=== PATIENT | male | born 1940 | race Caucasian/White ===

== ENCOUNTER 2019-05-28 08:29 | Emergency (ER) | payer OTHER ==
[~2019-05-28] VITALS: Ht 177.8 cm; Wt 90.7 kg
[2019-05-28] MEDS ORDERED: HYDCHL25 PO (08:47)
[2019-05-28] MEDS ORDERED: FLAX PO (08:47)
[2019-05-28] MEDS ORDERED: METF500 PO (08:47)
[2019-05-28] MEDS ORDERED: MAGN84 PO (08:48)
[2019-05-28] MEDS ORDERED: TRAZ50 PO (08:49)
[2019-05-28] MEDS ORDERED: ATOR10 PO (08:49)
[2019-05-28] MEDS ORDERED: Ranitidine HCl150 M1 PO (08:50)
[2019-05-28] MEDS ORDERED: AMLO10 PO (08:50)
[2019-05-28] MEDS ORDERED: VALERIAN ROOT PO (08:50)
== END 2019-05-28 09:43 | disposition home or self-care (01) ==
LOC: ER 08:29
DX: R04.0 Epistaxis (principal)
CPT/HCPCS: 99283

== ENCOUNTER 2020-06-04 13:25 | Emergency (ER) | payer OTHER ==
[~2020-06-04] VITALS: Ht 172.7 cm; Wt 80.7 kg
[~2020-06-04 13:25] MED LIST: AMLO10 PO; ATOR10 PO; FLAX PO; HYDCHL25 PO; MAGN84 PO; METF500 PO; Ranitidine HCl150 M1 PO; TRAZ50 PO; VALERIAN ROOT PO
[2020-06-04 13:58] LABS: BASOPHILS ABSOLUTE AUTO 0.07 K/mm3 (0.00-0.23); BASOPHILS PERCENT AUTO 1 % (0-2); EOSINOPHILS ABSOLUTE AUTO 0.17 K/mm3 (0.00-0.68); EOSINOPHILS PERCENT AUTO 2 % (0-6); Hematocrit 42.5 % (37.0-53.0); IMMATURE GRAN ABSOLUTE AUTO 0.04 K/mm3 (0.00-0.10); IMMATURE GRAN PERCENT AUTO 1 % (0-1); LYMPHOCYTES ABSOLUTE AUTO 1.85 K/mm3 (0.84-5.20); LYMPHOCYTES PERCENT AUTO 21 % (21-46); MONOCYTES ABSOLUTE AUTO 0.93 K/mm3 (0.16-1.47); MONOCYTES PERCENT AUTO 11 % (4-13); Mean Corpuscular HGB Conc 32.9 g/dL (31.5-36.5); Mean Corpuscular Volume 91 fL (80-100); Mean Platelet Volume 9.7 fL (9.1-12.4); NEUTROPHILS ABSOLUTE AUTO 5.79 K/mm3 (1.96-9.15); NEUTROPHILS PERCENT AUTO 65 % (41-73); Platelet Count 271 K/mm3 (150-400); RDW Coefficient Variation 13.3 % (11.7-14.2); RDW Standard Deviation 44.7 fL (35.1-46.3); Red Blood Cell Count 4.67 M/mm3 (4.30-5.90); White Blood Cell Count 8.85 K/mm3 (4.00-11.30)
[2020-06-04] MEDS ORDERED: MAGNESIUM OXID500 MG PO (14:07)
[2020-06-04] MEDS ORDERED: POTCHL20ER PO (14:08)
[2020-06-04] MEDS ORDERED: PHENY100ER PO (14:08)
[2020-06-04] MEDS ORDERED: PIOG30 PO (14:08)
[2020-06-04 14:25] LABS: Alanine Aminotransfer (ALT/SGP 32 U/L (12-78); Albumin, Blood 3.8 g/dL (3.4-5.0); Albumin/Globulin Ratio 0.9 (0.8-1.8); Alk Phos 63 U/L (50-136); Anion Gap 11 mmol/L (6-16); Aspartate Aminotrans (AST/SGOT 16 U/L (12-37); Bilirubin, Total 0.4 mg/dL (0.1-1.0); Blood Urea Nitrogen 17 mg/dL (8-24); Bun/Creatinine Ratio 19.3 (12.0-20.0); CO2, Blood 24 mmol/L (21-32); Calcium, Blood 8.9 mg/dL (8.5-10.1); Chloride, Blood 106 mmol/L (98-108); Creatinine, Blood 0.88 mg/dL (0.60-1.20); Globulin, Blood 4.2 g/dL (2.2-4.0); Glomerular Filtration Rate >60 (60-); Glucose, Blood 120 mg/dL (70-99); Potassium, Blood 3.5 mmol/L (3.5-5.5); Sodium, Blood 141 mmol/L (136-145)
[2020-06-04] MEDS ORDERED: LEVE500 PO (16:17)
== END 2020-06-04 17:15 | disposition home or self-care (01) ==
LOC: ER 13:25
PROVIDERS: Physician Assistant
DX: I62.00 Nontraumatic subdural hemorrhage, unspecified (principal); R29.810 Facial weakness; R47.81 Slurred speech; E11.9 Type 2 diabetes mellitus without complications; I10 Essential (primary) hypertension; Z79.84 Long term (current) use of oral hypoglycemic drugs; Z79.899 Other long term (current) drug therapy
CPT/HCPCS: 36415; 70450; 80053; 80185; 80186; 82947; 83735; 85025; 93005; 93010; 99285-25

== ENCOUNTER 2022-10-24 15:09 | Observation (INO) | payer OTHER ==
[~2022-10-24] VITALS: Ht 167.6 cm; Wt 77.8 kg
[~2022-10-24 15:09] MED LIST changes: +LEVE500 PO; +MAGNESIUM OXID500 MG PO; +PHENY100ER PO; +PIOG30 PO; +POTCHL20ER PO
[2022-10-24 15:50] LABS: BASOPHILS ABSOLUTE AUTO 0.07 K/mm3 (0.00-0.23); BASOPHILS PERCENT AUTO 1 % (0-2); EOSINOPHILS ABSOLUTE AUTO 0.12 K/mm3 (0.00-0.68); EOSINOPHILS PERCENT AUTO 2 % (0-6); Hematocrit 39.1 % (37.0-53.0); Hemoglobin 13.1 g/dL (13.5-17.5); IMMATURE GRAN ABSOLUTE AUTO 0.02 K/mm3 (0.00-0.10); IMMATURE GRAN PERCENT AUTO 0 % (0-1); LYMPHOCYTES ABSOLUTE AUTO 1.82 K/mm3 (0.84-5.20); LYMPHOCYTES PERCENT AUTO 24 % (21-46); MONOCYTES ABSOLUTE AUTO 0.79 K/mm3 (0.16-1.47); MONOCYTES PERCENT AUTO 11 % (4-13); Mean Corpuscular HGB 30.1 pg (26.0-34.0); Mean Corpuscular HGB Conc 33.5 g/dL (31.5-36.5); Mean Corpuscular Volume 90 fL (80-100); NEUTROPHILS ABSOLUTE AUTO 4.64 K/mm3 (1.96-9.15); NEUTROPHILS PERCENT AUTO 62 % (41-73); Platelet Count 197 K/mm3 (150-400); RDW Coefficient Variation 13.2 % (11.7-14.2); RDW Standard Deviation 43.8 fL (35.1-46.3); Red Blood Cell Count 4.35 M/mm3 (4.30-5.90); White Blood Cell Count 7.46 K/mm3 (4.00-11.30)
[2022-10-24 16:06] LABS: Albumin, Blood 3.9 g/dL (3.4-5.0); Albumin/Globulin Ratio 1.1 (0.8-1.8); Bilirubin, Total 0.5 mg/dL (0.1-1.0); Bun/Creatinine Ratio 16.8 (12.0-20.0); Calcium, Blood 8.5 mg/dL (8.5-10.1); Creatinine, Blood 1.13 mg/dL (0.60-1.20); Globulin, Blood 3.4 g/dL (2.2-4.0); Potassium, Blood 3.6 mmol/L (3.5-5.5); Total Protein, Blood 7.3 g/dL (6.4-8.2)
[2022-10-24 17:00] LABS: Source, Urine Clean Catch
[2022-10-24 17:02] LABS: Appearance, Urine Clear (Clear); Bilirubin, Urine Neg (Neg); Blood, Urine Neg (Neg); Color, Urine Yellow (P-Yellow); Glucose Qualitative, Urine Neg (Neg); Ketones, Urine Neg (Neg); Leukocyte Esterase, Urine Neg (Neg); Nitrite, Urine Neg (Neg); Protein, Urine 3+ (Neg); Urobilinogen, Urine NORM (Normal)
[2022-10-24 17:08] LABS: Bacteria Few /hpf; Red Blood Cells, Urine 0-2 /hpf (0-2); Squamous Epithelial Cells Rare /hpf (Few); Transitional Epithelial Cells Rare /hpf (0-Rare); White Blood Cells, Urine 0-2 /hpf (0-5)
[2022-10-24 17:13] LABS: U Amphetamine Screen Not Detected; U Barbituate Screen Not Detected; U Benzodiazapine Screen Not Detected; U Buprenorphine Screen Not Detected; U Cannabinoids Screen Not Detected; U Cocaine Screen Not Detected; U Methadone Screen Not Detected; U Methamphetamine Screen Not Detected; U Opiates Screen Not Detected; U Oxycodone Screen Not Detected; U Phencyclidine Screen Not Detected; U Propoxyphene Screen Not Detected
[2022-10-24 21:03] VITALS: BP 178/85
[2022-10-25] MEDS ORDERED: AMARYL PO (02:12)
[2022-10-25 02:48] VITALS: BP 166/77
--- NOTE | 2022-10-25 04:48 | NUR ---
LENA SLEPT WELL AFTER RECEIVING HIS NIGHTLY TRAZODONE. SYMPTOMS SEEMED TO WAX AND WANE EARLY AFTER ARRIVAL TO ROOM 340. MOSTLY GENERALIZED WEAKNESS AND INTERMITTANTLY SLURRED SPEECH AND EXPRESSIVE APHASIA. TOWARDS MORNING, THE APHASIA WAS GONE, PATIENT WAS AMBULATING STEADILY WITH HIS CANE IN THE ROOM WITH JUST A STAND BY ASSSIST TO BATHROOM. NO COMPLAINT OF PAIN OR DISCOMFORT. THIS MORNING HE WAS ABLE TO RATTLE OFF HIS MEDLIST WITH EXCEPTION OF CURRENT METFORMIN DOSAGES, WELL TWO SEIZURE MEDICATIONS WHICH HE THOUGHT HE HAD QUIT SHORTLY AFTER HIS CLOSED HEAD INJURY IN 2019. 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 FROM MARGE DESCRIPTION, SHE CAN BECOME QUITE VERBALLY ABUSIVE WITH HIM THE NIGHT BEFORE HE HAD THE STROKE LIKE SYMPTOMS. HE COULD AT THE VERY LEAST USE SOME CAREGIVER SUPPORT AT HOME
[2022-10-25 07:41] VITALS: BP 147/82
[2022-10-25] MEDS ORDERED: FAMO20 PO (14:52)
[2022-10-25] MEDS ORDERED: ASPI81CH PO (14:52)
[2022-10-25] MEDS ORDERED: CLOP75 PO (14:52)
[2022-10-25] MEDS ORDERED: ATOR40TA PO (14:52)
[2022-10-25] MEDS ORDERED: LEVE500 PO (14:53)
[2022-10-25] MEDS ORDERED: PHENY100ER PO (14:53)
--- NOTE | 2022-10-25 14:53 | NUR ---
NO PREFERENCE FOR HOME HEALTH, ORDERS SENT TO [facility]
--- NOTE | 2022-10-25 17:53 | NUR ---
PT AWAKE AT START OF SHIFT, RESTING QUIETLY WATCHING TV. DENIED NEEDS AT THAT TIME. BED ALARM ON FOR SAFETY. PT BECOMING ANXIOUS ABOUT GOING HOME TODAY AND KEPT GETTING OUT OF BED. PT ASSISTED TO CHAIR AT FOR A WHILE AND THEN BACK TO BED. DR MCKENNA IN TO SEE PT AND DISCUSS PLAN OF CARE. P/T IN TO WORK WITH PT FOR A WHILE, HELPING PT TO USE CANE AND WALKER SAFELY TO D/C HOME. SON AND CAME SHORTLY AFTER FOR A VISIT AND STAYED THUR AFTERNOON. PT TAKEN DOWN TO IMAGING AND THEN RETURNED TO FOR ECHO. PT THEN WANTING TO GO HOME. DR MCKENNA NOTIFIED OF PT'S REQUEST. DR MCKENNA RETURNED TO TO SEE PT AND THEN PLACED D/C ORDERS. INSTRUCTIONS REVIEWED WITH PT AND SON; VERBALIZING UNDERSTANDING. PT ASSISTED OUT TO SON'S CARE VIA W/C WITH CANE AND BELONGINGS. SON REPORTED PT AND TO HAVE LIVE IN INFORMATION ASSURANCE MANAGER NOW FOR SAFETY.
== END 2022-10-25 15:00 | disposition home health service (06) ==
LOC: ER 15:09 → MEDS 15:10
PROVIDERS: Emergency Medicine; Physician Assistant; ADMIT Hospitalist
DX: I63.59 Cerebral infarction due to unspecified occlusion or stenosis of other cerebral artery (principal); Z66 Do not resuscitate; I10 Essential (primary) hypertension; E11.9 Type 2 diabetes mellitus without complications
CPT/HCPCS: 36415; 70450; 70496; 71045; 80053; 81001; 82947; 84443; 84484; 85025; 93005; 93010; 93306; 97116; 97162; 97530; 99285-25; A9270; G0378; Q9967

== ENCOUNTER → 2023-01-18 | Outpatient (CLI) | payer OTHER ==
[~2023-01-18] MED LIST changes: +AMARYL PO; +ASPI81CH PO; +ATOR40TA PO; +CLOP75 PO; +FAMO20 PO
[2023-01-18 11:33] LABS: Albumin, Blood 3.7 g/dL (3.4-5.0); Albumin/Globulin Ratio 1.2 (0.8-1.8); Bilirubin, Total 0.5 mg/dL (0.1-1.0); Bun/Creatinine Ratio 24.8 (12.0-20.0); Calcium, Blood 8.9 mg/dL (8.5-10.1); Creatinine, Blood 1.09 mg/dL (0.60-1.20); Globulin, Blood 3.2 g/dL (2.2-4.0); Potassium, Blood 3.8 mmol/L (3.5-5.5); Total Protein, Blood 6.9 g/dL (6.4-8.2)
== END | disposition home or self-care (01) ==
LOC: LAB SHORT 09:25 → LAB 09:25
PROVIDERS: Nurse Practitioner Family
DX: E11.69 Type 2 diabetes mellitus with other specified complication (principal); I10 Essential (primary) hypertension
CPT/HCPCS: 80053; 83036

== ENCOUNTER → 2024-10-09 | Outpatient (CLI) | payer OTHER ==
[2024-10-09 17:50] LABS: BASOPHILS ABSOLUTE AUTO 0.05 K/mm3 (0.00-0.23); BASOPHILS PERCENT AUTO 1 % (0-2); EOSINOPHILS ABSOLUTE AUTO 0.16 K/mm3 (0.00-0.68); EOSINOPHILS PERCENT AUTO 2 % (0-6); Hematocrit 38.6 % (37.0-53.0); Hemoglobin 12.6 g/dL (13.5-17.5); IMMATURE GRAN ABSOLUTE AUTO 0.02 K/mm3 (0.00-0.10); IMMATURE GRAN PERCENT AUTO 0 % (0-1); LYMPHOCYTES ABSOLUTE AUTO 1.67 K/mm3 (0.84-5.20); LYMPHOCYTES PERCENT AUTO 21 % (21-46); MONOCYTES ABSOLUTE AUTO 0.81 K/mm3 (0.16-1.47); MONOCYTES PERCENT AUTO 10 % (4-13); Mean Corpuscular HGB Conc 32.6 g/dL (31.5-36.5); Mean Corpuscular Volume 92 fL (80-100); Mean Platelet Volume 10.7 fL (9.1-12.4); NEUTROPHILS ABSOLUTE AUTO 5.44 K/mm3 (1.96-9.15); NEUTROPHILS PERCENT AUTO 67 % (41-73); Platelet Count 223 K/mm3 (150-400); RDW Coefficient Variation 14.4 % (11.7-14.2); RDW Standard Deviation 48.4 fL (35.1-46.3); White Blood Cell Count 8.15 K/mm3 (4.00-11.30)
[2024-10-09 23:30] LABS: Albumin/Globulin Ratio 1.1 (0.8-1.8); Bilirubin, Total 0.5 mg/dL (0.1-1.0); Bun/Creatinine Ratio 23.6 (12.0-20.0); Calcium, Blood 9.4 mg/dL (8.5-10.1); Creatinine, Blood 1.61 mg/dL (0.60-1.20); Globulin, Blood 3.6 g/dL (2.2-4.0); Potassium, Blood 4.1 mmol/L (3.5-5.5); Total Protein, Blood 7.6 g/dL (6.4-8.2)
== END | disposition home or self-care (01) ==
LOC: LAB SHORT 17:04 → LAB 17:04
PROVIDERS: Nurse Practitioner Family
DX: I10 Essential (primary) hypertension (principal)
CPT/HCPCS: 80053; 85025

== ENCOUNTER → 2024-11-22 | Outpatient (CLI) | payer OTHER ==
[2024-11-22 19:09] LABS: Bun/Creatinine Ratio 16.3 (12.0-20.0); Calcium, Blood 9.1 mg/dL (8.5-10.1); Creatinine, Blood 1.35 mg/dL (0.60-1.20); Potassium, Blood 3.7 mmol/L (3.5-5.5)
== END ==
LOC: LAB SHORT 16:18 → LAB 16:18
PROVIDERS: Nurse Practitioner Family
DX: E87.1 Hypo-osmolality and hyponatremia (principal)
CPT/HCPCS: 80048